=== PATIENT | male | born 2000 | race Two or more races ===

== ENCOUNTER 2024-11-19 13:16 | Emergency (ER) | payer MEDICAID, SELFPAY ==
[2024-11-19 13:17] VITALS: BMI 19.0
--- NOTE | 2024-11-19 13:33 | XR_ITS ---
Examination: Hand, right 3 views Technique: Hand AP, oblique, lateral 3 views Date and time of exam: November 11, 2024 1347 hours INDICATIONS: Punching injury to the hand 3 days ago with pain FINDINGS: Acute comminuted fractures bases metacarpal with minimal dorsal dislocation of the base of fifth metacarpal Nondisplaced fractures bases fourth metacarpal IMPRESSION: Acute fractures bases fourth and fifth metacarpals Minimal dorsal dislocation base fifth metacarpal
--- NOTE | 2024-11-19 13:33 | XR_ITS ---
Examination: Wrist, right 3 views Technique: Wrist AP, oblique, lateral 3 views Date and time of exam: November 19, 2024 1346 hours INDICATIONS: Injury to the wrist 3 days ago, wrist pain. FINDINGS: Acute fractures bases fifth metacarpal with dorsal dislocation of the fifth metacarpal Suspicious for acute nondisplaced fracture base fourth metacarpal IMPRESSION: Acute comminuted fractures base fifth metacarpal with dorsal dislocation Suspicious for nondisplaced fractures base fourth metacarpal
--- NOTE | 2024-11-19 14:33 | EDNOTE_ITS ---
<Statement entered by Aracelis Crane MD - 11/19/24 14:46> As co-signing physician, I was present and available for consult prn. I concur with the plan and care as documented by the midlevel provider. Upper Extremity Injury RME/HPI General Chief Complaint: Hand/Wrist Problems Stated Complaint: RIGHT HAND INJURY SINCE LAST TUESDAY. Time Seen by Provider: 11/19/24 13:25 Arrival date/time: 11/19/24 13:16 24-year-old male presents the emergency department day for complaints of right hand injury last Tuesday patient reports he punched something last Tuesday since then has been having swelling and pain Limitations: no limitations Related Data Previous Rx's ?Medication ?Instructions ?Recorded ibuprofen 600 mg tablet 600 mg PO Q6H #30 tabs 11/19 Allergies Allergy/AdvReac Type Severity Reaction Status Date / Time No Known Allergies Allergy Verified 11/19/24 13:16 Review of Systems Review of Systems Systems Reviewed: All systems reviewed, normal except as documented Constitutional Constitutional: Reports system reviewed and no additional complaints, except as documented, Denies fever(s) and Denies headache(s) Eyes Eyes: Reports system reviewed and no additional complaints, except as documented and Denies blurry vision ENT Ears, Nose, Mouth, and Throat: Reports system reviewed and no additional complaints, except as documented, Denies headache(s), Denies nasal congestion and Denies nasal discharge Cardiovascular Cardiovascular: Reports system reviewed and no additional complaints, except as documented, Denies chest pain and Denies dyspnea Respiratory Respiratory: Reports system reviewed and no additional complaints, except as documented, Denies chest congestion, Denies cough and Denies dyspnea Gastrointestinal Gastrointestinal: Reports system reviewed and no additional complaints, except as documented and Denies abdominal pain Musculoskeletal Musculoskeletal: Reports system reviewed and no additional complaints, except as documented, Reports arthralgias, Reports deformity and Reports joint swelling Integumentary/Breasts Skin/Breast: Reports system reviewed and no additional complaints, except as documented and Denies rash Neurologic Neurologic: Reports system reviewed and no additional complaints, except as documented, Reports as per HPI and Denies headache(s) Past Medical History Past Medical History CARDIAC: Negative Cardiac Disorders or Congestive Heart Failure RESPIRATORY: Negative Chronic Obstructive Pulmonary Disease (COPD) or Asthma GENITOURINARY: Negative Renal Disease ENDOCRINE: Negative Diabetes Mellitus Type 1 or Diabetes Mellitus Type 2 HEMATOLOGIC: Negative Sickle Cell Disease Social History SMOKING STATUS: Current every day smoker ED Exam General Limitations: Present no limitations General appearance: Present alert and in no apparent distress Head Head exam: Present atraumatic Eye Eye exam: Present normal appearance, PERRL and EOMI ENT ENT exam: Present normal exam, normal oropharynx and mucous membranes moist Neck Neck exam: Present normal inspection, full ROM and trachea midline Chest Chest inspection: Present normal inspection and symmetric chest wall rise Respiratory Respiratory exam: Present normal lung sounds bilaterally Cardiovascular Cardiovascular exam: Present regular rate, normal rhythm and normal heart sounds Abdominal Exam Abdominal exam: Present soft and normal bowel sounds Extremities Exam Extremities exam: Present tenderness, normal capillary refill, joint swelling and other (Mild deformity in the right hand) Back Exam Back exam: Present normal inspection and full ROM Neurological Exam Neurological exam: Present alert, oriented X3 and CN II-XII intact Psychiatric Psychiatric exam: Present normal affect and normal mood Skin Skin exam: Present warm, dry, intact and normal color Course Quality Measures none Orders Category Date Time Status XR hand comp RT min 3V Stat Exams 11/19/24 13:33 Completed XR wrist comp RT min 3V Stat Exams 11/19/24 13:33 Completed Vital Signs Vital signs: O2 saturation 98% room air within normal limits Extremity Injury MDM Narrative MDM Narrative:: 24-year-old male presents the emergency department day for complaints of right hand injury last Tuesday patient reports he punched something last Tuesday since then has been having swelling and pain On exam patient has swelling dorsal aspect of right hand consistent with fracture X-ray of the right hand and wrist obtained consistent with fracture Patient placed in a splint Explained to the patient he must follow-up with his primary care doctor next 24 to 48 hours and will get a referral to orthopedics as he does have a fracture which is angulated patient states understanding Patient data External records reviewed:: [facility] previous records Clinical information provided by:: patient Social determinants that could affect healthcare access:: none Patient has the following chronic illnesses:: None How is presenting disease/condition affected by chronic disease/condition?: no chronic disease Evaluation data The following diagnostics were reviewed and interpreted by me:: radiology exam(s) Lab and/or radiology exams considered but not ordered:: Radiology obtain Interpretation Summary: Reviewed by me Medications / Prescriptions Medications or Prescriptions considered but not ordered:: Given Medication administrations:: Given Consultations Consultation(s) initiated? (list below): No Diagnosis Upper Extremity Injury Differential Diagnosis: other (Fracture hand, contusion of hand) Most likely diagnosis given after review of the tests above:: Fracture hand Admission Indicated Admission indicated?: not indicated Admission Request Was there a request for admission?: No Disposition Plan Disposition Plan: Discharge Discharge Attestation Discharge Attestation: The patient and all family members were given an opportunity to ask questions and understood the discharge instructions. Discharge instructions specifically effects, indications for sooner follow up or return to the emergency department, and the expected course of current diagnosis. Patient condition: Stable Discharge Plan Plan Patient Disposition: HOME (Self Care) Disposition Comment: Stable Prescriptions/Referrals Prescriptions/Med Rec: New ibuprofen 600 mg tablet 600 mg PO Q6H Qty: 30 0RF Problem List Clinical Impression: Fracture of right hand Patient/Caregiver Discharge Instructions Education Materials: How [employer] He[employer] Additional Instructions: Please follow-up with orthopedic as soon as possible for worsening symptoms return immediately Print Language: Tamazight Stand Alone Forms: [employer] Award Info., Patient Portal Info Letter CLAUDIA/NAHOMY Supervising Physician CLAUDIA/NAHOMY Supervising Physician: Dr. CRANE
== END 2024-11-19 14:49 | disposition home or self-care (01) ==
LOC: SERX 14:59
PROVIDERS: Emergency Provider Emergency Medicine
DX: S62.316A Displaced fracture of base of fifth metacarpal bone, right hand, initial encounter for closed fracture (principal); S62.314A Displaced fracture of base of fourth metacarpal bone, right hand, initial encounter for closed fracture; W22.8XXA Striking against or struck by other objects, initial encounter
CPT/HCPCS: 29125; 73110; 73130; 99283

== ENCOUNTER → 2024-12-04 | Outpatient (CLI) | payer MEDICAID, SELFPAY ==
--- NOTE | 2024-12-04 17:02 | XR_ITS ---
Examination: Wrist, right 3 views Technique: Wrist AP, oblique, lateral 3 views Date and time of exam: December 04, 2024 1705 hours Comparison November 19, 2024 INDICATIONS: Acute fractures base fifth metacarpal November 11, 2024 FINDINGS: Interval partial healing comminuted fractures base fifth metacarpal There remains mild dorsal dislocation of the base of the fifth metacarpal IMPRESSION: Partial healing fractures base fifth metacarpal
--- NOTE | 2024-12-04 17:02 | XR_ITS ---
Examination: Hand, right 3 views Technique: Hand AP, oblique, lateral 3 views Date and time of exam: December 05, 2023 1703 hours INDICATIONS: Injuries to the wrist and hand November 19, 2024 FINDINGS: Partially healing comminuted fracture fifth metacarpal There remains mild dorsal dislocation of the base of the fifth metacarpal IMPRESSION: Partial healing comminuted fractures base fifth metacarpal There remains mild dorsal dislocation of the base of the fifth metacarpal
== END | disposition home or self-care (01) ==
PROVIDERS: PCP Nurse Practitioner Family; Referring Provider Physician Assistant; Visit Provider Physician Assistant
DX: S62.316A Displaced fracture of base of fifth metacarpal bone, right hand, initial encounter for closed fracture (principal); S63.266A Dislocation of metacarpophalangeal joint of right little finger, initial encounter; X58.XXXA Exposure to other specified factors, initial encounter
CPT/HCPCS: 73110; 73130

== ENCOUNTER 2025-03-05 19:04 | Emergency (ER) | payer MEDICAID, SELFPAY ==
[2025-03-05 19:07] VITALS: BMI 19.8
[2025-03-05 19:35] VITALS: BP 130/77; PULSE 57; RESP 18; TEMP 37.2; O2SAT 100
--- NOTE | 2025-03-05 20:37 | EDNOTE_ITS ---
ED Wound/Laceration-RME/HPI General Chief Complaint: Wound Recheck / Suture Removal Stated Complaint: RE CHECK WOUND RIGHT HAND Time Seen by Provider: 03/05/25 19:37 Arrival date/time: 03/05/25 19:04 RME / HPI RME / HPI narrative: 25-year-old male presents to the ED with a complaint of bleeding through his bandage to his right hand. He states he had surgery today at [facility], unknown surgeon. This surgery was to remove pins from a recent boxer's fracture. He is concerned he needs sutures or antibiotics. Related Data Previous Rx's ?Medication ?Instructions ?Recorded ibuprofen 600 mg tablet 600 mg PO Q6H #30 tabs 11/19 Allergies Allergy/AdvReac Type Severity Reaction Status Date / Time No Known Allergies Allergy Verified 03/05/25 19:05 Review of Systems Review of Systems Systems Reviewed: All systems reviewed, normal except as documented Past Medical History Past Medical History CARDIAC: Negative Cardiac Disorders or Congestive Heart Failure RESPIRATORY: Negative Chronic Obstructive Pulmonary Disease (COPD) or Asthma GENITOURINARY: Negative Renal Disease ENDOCRINE: Negative Diabetes Mellitus Type 1 or Diabetes Mellitus Type 2 HEMATOLOGIC: Negative Sickle Cell Disease Social History SMOKING STATUS: Current some day smoker Course Course Course Narrative: Removed bandage for evaluation of wounds. Cleansed area. No active bleeding noted at this time. New Xeroform placed over surgical wounds then redressed with bulky Kerlix gauze. CMS intact distally. Quality Measures none Vital Signs Vital signs: Vital Signs Temperature 99.0 F 03/05/25 19:35 Pulse Rate 57 L 03/05/25 19:35 Respiratory Rate 18 03/05/25 19:35 Blood Pressure 130/77 03/05/25 19:35 Pulse Oximetry (%) 100 03/05/25 19:35 Oxygen Delivery Method Room Air 03/05/25 19:35 Wound / Laceration MDM Narrative MDM Narrative:: Symptoms, exam and diagnostic studies are consistent with: Postop bleeding to right hand. Patient was discharged home in stable condition. Patient/family advised to follow-up with their PCP in 24-48 hours. Encouraged to return to the ED for any new or worsening symptoms. Patient data External records reviewed:: None Clinical information provided by:: patient Social determinants that could affect healthcare access:: none Patient has the following chronic illnesses:: N/A How is presenting disease/condition affected by chronic disease/condition?: no chronic disease Evaluation data The following diagnostics were reviewed and interpreted by me:: other (specify) (None) Lab and/or radiology exams considered but not ordered:: N/A Interpretation Summary: N/A Medications / Prescriptions Medications or Prescriptions considered but not ordered:: N/A Medication administrations:: N/A Consultations Consultation(s) initiated? (list below): No Diagnosis Wound Differential Diagnosis: other (Postsurgical bleeding) Most likely diagnosis given after review of the tests above:: Postsurgical bleeding to right hand. Admission Indicated Admission indicated?: not indicated Explain why admission is indicated or not indicated:: Patient is stable for discharge Admission Request Was there a request for admission?: No Disposition Plan Disposition Plan: Discharge Discharge Attestation Discharge Attestation: The patient and all family members were given an opportunity to ask questions and understood the discharge instructions. Discharge instructions specifically effects, indications for sooner follow up or return to the emergency department, and the expected course of current diagnosis. Patient condition: Stable Discharge Plan Plan Patient Disposition: HOME (Self Care) Discharge Disposition comment: Stable and improved Prescriptions/Referrals Prescriptions/Med Rec: No Action ibuprofen 600 mg tablet 600 mg PO Q6H Qty: 30 0RF Problem List Clinical Impression: Post-op bleeding Impression comment: No current bleeding noted during wound check. Patient/Caregiver Discharge Instructions Education Materials: ED Post Op Wound Check, Bleeding Additional Instructions: Keep the right hand elevated at all times to reduce bleeding and pain. Follow-up with your surgeon as directed. 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 Follow-up with your primary care physician in 24 to 48 hours. Return to the ED for any new or worsening symptoms. Print Language: Tuvaluan Stand Alone Forms: [employer] Info., Patient Portal Info Letter PA/NAHOMY Supervising Physician CLAUDIA/NAHOMY Supervising Physician: Dr. Shannon
== END 2025-03-05 20:47 | disposition home or self-care (01) ==
LOC: SERX 20:43
PROVIDERS: Emergency Provider Emergency Medicine; PCP Family Medicine
DX: M96.830 Postprocedural hemorrhage of a musculoskeletal structure following a musculoskeletal system procedure (principal)
CPT/HCPCS: 99282

== ENCOUNTER 2025-04-22 12:45 | Outpatient (RCR) | payer MEDICAID, SELFPAY ==
--- NOTE | 2025-04-22 13:08 | PTNOTE_ITS ---
PT OP Initial Eval Patient Information Outpatient Physical Therapy Treatment Date: 04/22/25 Visit Reasons: WRIST PAIN Medical Diagnosis: M25.531 S62.316A S62.304A Treatment Dx #1: R hand pain Treatment Dx #2: Decreased ROM R hand Start of Care: 04/22/25 Date of Onset: 02/05/25 K wire removal Smoking Status Smoking Status: Light (< 1 pack/day) Cessation Counseling Provided: JW was advised that quitting smoking is the single most important factor to protect the health of themselves and their family. Discussed the benefits of quitting smoking with patient. Encouraged patient to quit smoking and provided Cessation assistance materials and resources. Tobacco Use: Cigarette Years smoked: 5 Are you interested in quitting?: No Would you like additional Smoking Cessation Counseling?: No Initial Assessment Subjective: Pt is 25 yr old male s/p R hand displaced FX of base of 4th and 5th metacarpal bone and K-wire placement in December and removal in January. He reports difficulty grasping objects and lifting things due to not making full fist. PMH: none reported Imaging: Xrays Partial healing comminuted fractures base fifth metacarpal?? Pt goal: better ROM to make a fist Objective: R wrist AROM: Flexion: 65 deg Ext: 30 deg 4,5th Digit ROM: Extension: lacking about 10 deg extension at PIP's MCP flexion: 20 deg PIP: 25 deg DIP: 20 deg Front End Web Developer strength: R: 20 lbs, L: 100 lbs Thumb to finger opposition: can touch all digits with thumb Assessment: Pt presentation consistent with referring Dx with limited 4th and 5th digit ROM into flexion and extension by scar tissue and decreased germination testing manager strength. Pt requires skilled therapy to meet goals and has good rehab potential. Short Term and Skilled Nursing Goals 1. Ind with HEP 2. Improved 4,5th digit flexion to make full fist 3. Improved germination testing manager strength to at least 40 lbs R hand 4. Pt will grasp and carry 5 lbs objects without dropping. Treatment Plan 1. Manual therapy ? 2. Therex ? 3. Modalities as indicated, moist heat, ice, estim, Frequency and Duration: 2x a week for 12 visits plus the evaluation Certification Dates: 04/22/25 to 07/20/25 Procedure Charges OP PT Eval Mod Complex 30 minutes: Yes
== END 2025-04-23 23:59 | disposition home or self-care (01) ==
LOC: CPTX 12:45
PROVIDERS: PCP Internal Medicine; Referring Provider Physician Assistant; Visit Provider Physician Assistant
DX: M25.531 Pain in right wrist (principal); M79.641 Pain in right hand; S62.316D Displaced fracture of base of fifth metacarpal bone, right hand, subsequent encounter for fracture with routine healing; S62.304D Unspecified fracture of fourth metacarpal bone, right hand, subsequent encounter for fracture with routine healing; Z71.6 Tobacco abuse counseling; F17.210 Nicotine dependence, cigarettes, uncomplicated; X58.XXXD Exposure to other specified factors, subsequent encounter
CPT/HCPCS: 97162

== ENCOUNTER 2025-05-17 14:00 | Outpatient (RCR) | payer MEDICAID, SELFPAY ==
--- NOTE | 2025-04-29 14:31 | PT.ODAYNRPT ---
PT Outpatient Daily Note OP Daily Note Outpatient Physical Therapy Treatment Date: 04/29/25 Visit Reasons: RIGHT WRIST PAIN Subjective: Doing HEP with finger soreness into flexion Objective: See F/S for therex MT: PROM into 4th, 5th digit flexion x5' Assessment: Good improvement with PROM into PIP and MCP flexion to almost 90 deg PIP flexion. Still lacking DIP flexion Plan: Continue per POC to improve digit flexion ROM Length of Time (minutes) of Treatment: 30 Minutes Procedure Charges Therapeutic Exercise 30 minutes: Yes
--- NOTE | 2025-05-03 15:14 | PT.ODAYNRPT ---
PT Outpatient Daily Note OP Daily Note Outpatient Physical Therapy Treatment Date: 05/03/25 Visit Reasons: RIGHT WRIST PAIN Subjective: Pt reports R hand digits are moving more, pt has been compliant with HEP. Objective: Please see flow sheet for ther ex list. Assessment: Pt tolerated manual stretches with minimal pain. pt encouraged to continue with HEP. Plan: Continue with poC. Length of Time (minutes) of Treatment: 30 Minutes Procedure Charges Therapeutic Exercise 30 minutes: Yes
--- NOTE | 2025-05-09 15:47 | PT.ODAYNRPT ---
PT Outpatient Daily Note OP Daily Note Outpatient Physical Therapy Treatment Date: 05/09/25 Visit Reasons: RIGHT WRIST PAIN Subjective: Pt reports hand is doing better. Objective: Please see flow sheet for ther ex list. Assessment: Progressing interventions, focus on restoring ROM of 4th and 5th digits. Plan: Continue with poC. Length of Time (minutes) of Treatment: 30 Minutes Procedure Charges Therapeutic Exercise 30 minutes: Yes
--- NOTE | 2025-05-14 16:42 | PT.ODAYNRPT ---
PT Outpatient Daily Note OP Daily Note Outpatient Physical Therapy Treatment Date: 05/14/25 Visit Reasons: RIGHT WRIST PAIN Subjective: Doing HEP with finger soreness into flexion Objective: See F/S for therex Assessment: Good improvement with PROM into PIP and MCP flexion to 90 deg PIP flexion. Still lacking DIP flexion Plan: Continue per POC to improve digit flexion ROM Length of Time (minutes) of Treatment: 30 Minutes Procedure Charges Therapeutic Exercise 30 minutes: Yes
--- NOTE | 2025-05-17 14:22 | PT.ODAYNRPT ---
PT Outpatient Daily Note OP Daily Note Outpatient Physical Therapy Treatment Date: 05/17/25 Visit Reasons: RIGHT WRIST PAIN Subjective: Pt reports fingers are moving better, has a follow up with MD today. Objective: Please see flow sheet for ther ex list. Assessment: Pt ROM of digits continue to improve. Plan: Continue with pOC. Length of Time (minutes) of Treatment: 30 Minutes Procedure Charges Therapeutic Exercise 30 minutes: Yes
== END 2025-05-24 23:59 | disposition home or self-care (01) ==
LOC: CPTX 14:00
PROVIDERS: PCP Physician Assistant; Referring Provider Physician Assistant; Visit Provider Physician Assistant
DX: M25.531 Pain in right wrist (principal); M79.641 Pain in right hand; S62.304D Unspecified fracture of fourth metacarpal bone, right hand, subsequent encounter for fracture with routine healing; S62.306D Unspecified fracture of fifth metacarpal bone, right hand, subsequent encounter for fracture with routine healing; X58.XXXD Exposure to other specified factors, subsequent encounter
CPT/HCPCS: 97110

== ENCOUNTER 2025-05-29 16:31 | Outpatient (RCR) | payer MEDICAID, SELFPAY ==
--- NOTE | 2025-05-29 17:56 | PT.ODAYNRPT ---
PT Outpatient Daily Note OP Daily Note Outpatient Physical Therapy Treatment Date: 05/29/25 Visit Reasons: right wrist pain Subjective: He is working in agriculture with finger soreness into flexion but better ROM to make a fist Objective: See F/S for therex MT: PROM into 4,5th digit flexion x7' Assessment: Good improvement with PROM into PIP and MCP flexion to 90 deg PIP flexion to touch digit pads to palm Plan: Continue per POC to improve digit flexion ROM to make full fist Length of Time (minutes) of Treatment: 30 Minutes Procedure Charges Therapeutic Exercise 30 minutes: Yes
--- NOTE | 2025-06-11 10:36 | PT.ODS1RPT ---
PT OP Progress/Discharge Note Date of Service: 06/11/25 Progress Note/DC Note Progress Note/Discharge Note: DC Note Patient Information Visit Reasons: right wrist pain Service Continue Service or Discharge: Discharge Discharge Date: 06/11/25 Status Assessment: Pt attended the initial evaluation and 6 Rx visits and no showed the last 2 appts with 5 no shows total which is not in compliance with attendance policy. Pt?s attendance is not consistent enough to make progress with goals. Thank you for your referrals. Plan: D/C
== END 2025-06-23 23:59 | disposition home or self-care (01) ==
LOC: CPTX 16:31
PROVIDERS: PCP Physician Assistant; Referring Provider Physician Assistant; Visit Provider Physician Assistant
DX: M79.641 Pain in right hand (principal); M25.531 Pain in right wrist; S62.316D Displaced fracture of base of fifth metacarpal bone, right hand, subsequent encounter for fracture with routine healing; S62.304D Unspecified fracture of fourth metacarpal bone, right hand, subsequent encounter for fracture with routine healing; X58.XXXD Exposure to other specified factors, subsequent encounter; F17.210 Nicotine dependence, cigarettes, uncomplicated; Z71.6 Tobacco abuse counseling
CPT/HCPCS: 97110